=== PATIENT | male | born 1940 | race Caucasian/White ===

== ENCOUNTER 2019-12-24 00:52 | Emergency (ER) | payer MEDICARE ==
[~2019-12-24] VITALS: Ht 177.8 cm; Wt 89.0 kg
[~2019-12-24 00:52] MED LIST: ACET325S PO; FEXO1TAB25 PO; HYDR-3237 PO; IBUP-1623 PO; MULT-717 PO; NAPR220C62 PO; VIT1TABL32 PO
[2019-12-24 01:54] LABS: BASOPHILS % (AUTO) 1 % (0-1); EOSINOPHILS % (AUTO) 5 % (1-7); LYMPHOCYTES % (AUTO) 34 % (22-44); MEAN CORPUSCULAR HEMOGLOBIN 32.3 pg (27.5-34.5); MEAN CORPUSCULAR HGB CONC 33.6 g/dL (33.2-36.2); MONOCYTES % (AUTO) 11 % (2-9); NEUTROPHILS % (AUTO) 50 % (42-75); PLATELET COUNT 233 x10^3/uL (130-400); RED BLOOD COUNT 4.96 x10^6/uL (4.38-5.82)
[2019-12-24 01:55] LABS: MD NO
[2019-12-24 02:00] LABS: ALBUMIN 3.5 g/dL (3.4-5.0); ANION GAP 4 mmol/L (5-15); CALCIUM 8.8 mg/dL (8.5-10.1); CHLORIDE 112 mmol/L (98-107); CREATININE 0.96 mg/dL (0.7-1.3)
[2019-12-24 02:04] LABS: TROPONIN I < 0.015 ng/mL (0.000-0.045)
[2019-12-24 03:23] VITALS: BP 123/71
== END 2019-12-24 03:25 | disposition home or self-care (01) ==
LOC: ED 02:08
DX: I45.10 Unspecified right bundle-branch block (principal); R00.2 Palpitations
CPT/HCPCS: 36415; 71045; 80048; 82040; 84484; 85025; 93005; 99285